=== PATIENT | male | born 1980 | race Hispanic/Latino ===

== ENCOUNTER 2021-05-03 10:52 | Emergency (ER) | payer BC ==
[~2021-05-03] VITALS: Ht 167.6 cm; Wt 79.4 kg
[2021-05-03 12:05] VITALS: BP 137/84
== END 2021-05-03 12:06 | disposition home or self-care (01) ==
LOC: FSED 11:05
DX: R42 Dizziness and giddiness (principal); R00.2 Palpitations
CPT/HCPCS: 80053; 84484; 85025; 93005; 99282